=== PATIENT | male | born 1940 | race Caucasian/White ===

== ENCOUNTER 2021-04-21 17:22 | Inpatient (IN) | payer MEDICARE, OTHER ==
[~2021-04-21] VITALS: Ht 188 cm; Wt 104.3 kg
[2021-04-21] MEDS ORDERED: BUSPIRONE HCL5 MG PO (18:15)
[2021-04-21] MEDS ORDERED: DOXYCYCLINE MO100 MG PO (18:15)
[2021-04-21] MEDS ORDERED: FUROSEMIDE40 MG PO (18:16)
[2021-04-21] MEDS ORDERED: AMLODIPINE BESYL5 MG PO (18:16)
[2021-04-21] MEDS ORDERED: VITAMIN D3125 MCG PO (18:16)
[2021-04-21 18:41] LABS: HEMOGLOBIN 16.5 gm/dl (14.0-17.5); RED BLOOD COUNT 5.2 M/UL (4.20-5.50)
[2021-04-21 22:07] LABS: BUN/CREATININE RATIO 19 (0-10)
[2021-04-22 06:34] LABS: HEMOGLOBIN 15.4 gm/dl (14.0-17.5); RED BLOOD COUNT 4.88 M/UL (4.20-5.50)
[2021-04-22 06:36] LABS: WHITE BLOOD COUNT 14.2 K/UL (4.5-11.0)
[2021-04-22 06:59] LABS: BUN/CREATININE RATIO 23 (0-10)
[2021-04-23 07:19] LABS: HEMOGLOBIN 14.3 gm/dl (14.0-17.5); RED BLOOD COUNT 4.48 M/UL (4.20-5.50)
[2021-04-23 07:52] LABS: WHITE BLOOD COUNT 32.5 K/UL (4.5-11.0)
--- NOTE | 2021-04-23 10:04 | NUR ---
INSERT FOLY. PT HAD 1000MLS OUT.
[2021-04-24 06:20] LABS: HEMOGLOBIN 12.3 gm/dl (14.0-17.5); RED BLOOD COUNT 3.97 M/UL (4.20-5.50); WHITE BLOOD COUNT 15.4 K/UL (4.5-11.0)
[2021-04-24 06:57] LABS: BUN/CREATININE RATIO 38 (0-10)
[2021-04-24 18:08] LABS: ORGANISM ID Not indicated. (.); SPECIMEN SOURCE Urine (.); STREPTOCOCCUS PNEUMONIAE AG Negative (Negative)
[2021-04-25 07:16] LABS: HEMOGLOBIN 11.6 gm/dl (14.0-17.5); RED BLOOD COUNT 3.73 M/UL (4.20-5.50); WHITE BLOOD COUNT 12.3 K/UL (4.5-11.0)
[2021-04-25 07:38] LABS: BUN/CREATININE RATIO 32 (0-10)
--- NOTE | 2021-04-25 09:29 | NUR ---
DR. SIMON SAW PATIENT THIS AM AND INSTRUCTED RN TO REMOVE URINARY CATHETER AND ENSURE PATIENT VOIDS BEFORE DISCHARGE.
--- NOTE | 2021-04-25 14:59 | NUR ---
PATIENT AMBULATED WITH WALKER AND STANDBY ASSIST WITHOUT OXYGEN THERAPY. PULSE OXIMETRY MONITORED IN ROOM BY STAFF AND DROPPED TO 93% ON ROOM AIR THEN RETURNED TO 97% SITTING IN BED ON ROOM AIR. RN NOTIFIED DR. 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 NO S/SX OF DISTRESS NOTED TO PATIENT.
[2021-04-25] MEDS ORDERED: ASPIRIN EC81 MG PO (20:51)
[2021-04-25] MEDS ORDERED: BENZONATATE100 MG PO (20:51)
[2021-04-25] MEDS ORDERED: PROVENTIL HFA6.7 GM INH (20:51)
[2021-04-25] MEDS ORDERED: IPRAT-ALBUT 0.5-3 ML NEB (20:51)
[2021-04-25] MEDS ORDERED: POLYETHYLENE GL17 GM PO (20:51)
--- NOTE | 2021-04-25 22:45 | NUR ---
PATIENT DISCHARGED FROM FACILITY, VS SATBLE. NO ACUTE DISTRESS NOTED. TRANSFERED SELF WITH TOUCH ASSIST TO WHEELCHAIR. STAFF THEN TRANSPORTED PATIENT TO FRONT OF HOPSITAL EXIT FOR TRANSPORT VIA PRIVATE VEHICLE HOME WITH SELF CARE.
== END 2021-04-25 22:45 | disposition home or self-care (01) | DRG 291 ==
LOC: MED SURG 4 17:22
PROVIDERS: Internal Medicine; Internal Medicine Pulmonary Disease; Physician Assistant Medical; ADMIT Internal Medicine
PROC: B24BZZ4 Ultrasonography of Heart with Aorta, Transesophageal (ICD-10-PCS; principal; 2021-04-22)
DX: I11.0 Hypertensive heart disease with heart failure (principal); J96.01 Acute respiratory failure with hypoxia; I50.31 Acute diastolic (congestive) heart failure; J44.1 Chronic obstructive pulmonary disease with (acute) exacerbation; J98.11 Atelectasis; J90 Pleural effusion, not elsewhere classified; N17.9 Acute kidney failure, unspecified; Z20.822 Contact with and (suspected) exposure to COVID-19; I08.3 Combined rheumatic disorders of mitral, aortic and tricuspid valves; E66.9 Obesity, unspecified; G47.33 Obstructive sleep apnea (adult) (pediatric); I27.81 Cor pulmonale (chronic); E78.5 Hyperlipidemia, unspecified; F17.210 Nicotine dependence, cigarettes, uncomplicated; F41.9 Anxiety disorder, unspecified; I25.10 Atherosclerotic heart disease of native coronary artery without angina pectoris; N28.1 Cyst of kidney, acquired; I27.20 Pulmonary hypertension, unspecified; Z82.49 Family history of ischemic heart disease and other diseases of the circulatory system; Z99.81 Dependence on supplemental oxygen; Z87.01 Personal history of pneumonia (recurrent); Z68.29 Body mass index [BMI] 29.0-29.9, adult
CPT/HCPCS: ECHO; 36415; 36600; 71045; 71046; 80048; 80053; 81001; 82550; 82553; 82803; 83036; 83540; 83550; 83605; 83735; 83880; 84484; 85025; 85027; 86140; 87040; 87070; 87205; 87278; 87899; 93005; 93306; 93970; 94640; 94664; 94760; 94762; 97110; 97110-GP-CQ; 97116-GP-CQ; 97161; 97166; 97530; J0456; J0696; J1650; J1940; J2920; J7030